=== PATIENT | male | born 1970 | race Hispanic/Latino ===

== ENCOUNTER 2017-10-11 20:43 | Emergency (ER) | payer MEDICARE ==
[2017-10-11 21:22] VITALS: BP 122/48
--- NOTE | 2017-10-11 21:37 | Emergency Department Report ---
HPI - General Chief Complaint: Upper Respiratory Infection Time Seen by Provider: 10/11/17 21:36 - HPI HPI: Patient here reported that he he has had cough for 2-3 weeks. Patient said that he has bad allergies and that he's been coughing which is worse at night report congestion and drainage with drainage of the back of his throat. He said he tried Zyrtec for a few days [id number] but it didn't help. He is also reporting sneezing. Denies any shortness of breath or chest pain. Denies any back pain. Denies any fever or chills. He reports generalized back pain with cough and a 10 out of 10. Triage nurse reported the patient was having pain in his chest but patient denies he said he is having it to his upper back when he coughs only. Pain is sore with coughing. No medication taken for cough or for pain. Denies any nausea or vomiting. Denies any urinary burning frequency or urgency. Denies any abdominal pain. Denies any headache or dizziness. ED Past Medical Hx - Past Medical History Previous Medical History?: Yes Hx Seizures: Yes - Surgical History Past Surgical History?: No - Family History Family history: no significant - Social History Smoking Status: Current Every Day Smoker Substance Use Type: None - Medications Home Medications: Home Medications Medication Instructions Recorded Confirmed Last Taken Type Azithromycin [Zithromax Z-PASTOR] 250 mg PO DAILY 5 Days #1 pack 10/11/17 Unknown Rx Cetirizine HCl [ZyrTEC] 10 mg PO QAM 14 Days #14 capsule 10/11/17 Unknown Rx Codeine Phosphate/Guaifenesin 10 ml PO QHS PRN #70 ml 10/11/17 Unknown Rx [Guaifenesin-Codeine Syrup] Fluticasone [Flonase] 1 spray NS QDAY 14 Days #1 bottle 10/11/17 Unknown Rx ED Review of Systems ROS: Stated complaint: COUGH Other details as noted in HPI Comment: All other systems reviewed and negative Constitutional: no symptoms reported Eyes: denies: eye pain, eye discharge, vision change ENT: congestion. denies: ear pain, throat pain, dental pain, hearing loss, epistaxis Respiratory: cough. denies: orthopnea, shortness of breath, SOB with exertion, SOB at rest, stridor, wheezing Cardiovascular: denies: chest pain, palpitations, dyspnea on exertion, edema, syncope, paroxysmal nocturnal dyspnea Gastrointestinal: denies: abdominal pain, nausea, vomiting, diarrhea, constipation, hematemesis, melena, hematochezia Genitourinary: denies: dysuria, hematuria Musculoskeletal: back pain (only with coughing) Skin: denies: rash Neurological: denies: headache, weakness, numbness, paresthesias, confusion, abnormal gait, vertigo Physical Exam - Physical Exam Vital Signs: Vital Signs 10/11/17 10/11/17 20:48 21:19 Temperature 98.3 F 98.3 F Pulse Rate 97 H 86 Respiratory 18 17 Rate Blood Pressure 122/48 122/48 O2 Sat by Pulse 97 98 Oximetry General: This is a 46-year-old male well-nourished well-developed in no acute distress. Physical Exam: Head: Normocephalic atraumatic Ears:BIateral TM congested without erythema and loss of bony landmarks. Sebastien EAC with normal exam. No mastoid bone tenderness. Mouth: Moist, no pharyngeal erythema or exudate . Positive tonsillar enlargement without tonsillar erythema or exudate. UVULA midline and oral airways patent. No peritonsillar abscess Neck: Nontender to palpate, supple, normal range of motion. No adenopathy. No c- spine tenderness. Nose: Bilateral nasal mucosa congested/erythema with clear drainage. Maxillary and frontal sinuses tender to palpate. Eyes: Bilateral Sclerae and conjunctiva without injection. Bilateral pupils equal and reactive to light. Bilateral lids are normal. Normal accommodation.BEOMI Lungs: Clear to auscultate bilaterally, no rhonchi wheezes or rales. Normal work of breathing and no chest wall tenderness. Dry cough. CV: S1, S2. Regular rate and rhythm negative murmur. Capillary refill is less than 3 seconds Abdomen: Nontender to palpation in all quadrants: No guarding or rebound tenderness. Positive bowel sounds in all quadrants Extremity: No clubbing, cyanosis or edema. +2 pulses in all extremities and no neurovascular compromise Skin: Clean dry and intact, no rashes or lesions Psych: Normal mood and behavior ED Course Vital Signs 10/11/17 10/11/17 20:48 21:19 Temperature 98.3 F 98.3 F Pulse Rate 97 H 86 Respiratory 18 17 Rate Blood Pressure 122/48 122/48 O2 Sat by Pulse 97 98 Oximetry - Reevaluation(s) Reevaluation #1: 10/11/17 22:51 He is stable throughout ED course. ED Medical Decision Making - Radiology Data Radiology results: report reviewed X-ray revealed no acute cardiopulmonary findings. - Medical Decision Making [place]: Here with upper respiratory cough and congestion 2-3 weeks which is preceded by nasal congestion and runny nose and postnasal drainage. Patient is without any chest pain or shortness of breath and his pulse ox is 98% on room air. He is not having any fever but reports severe pollen allergy which she has been taking Zyrtec without any relief but he did not take Zyrtec for prolonged period of time. Patient given Deltasone 60 mg by mouth in emergency room. I discussed patient of this chest x-ray stable and he has upper respiratory infection with cough and congestion for 3 weeks which need to be treated with antibiotic. He voiced understanding. Patient does have a primary care physician and I discussed with him he needs to follow-up with his primary care physician in 2-3 days. Patient discharged home in stable condition with prescription for Zyrtec, Flonase, Zpack and penicillin codeine. Critical care attestation.: If time is entered above; I have spent that time in minutes in the direct care of this critically ill patient, excluding procedure time. ED Disposition Clinical Impression: Upper respiratory infection with cough and congestion Disposition: DC-01 TO HOME OR SELFCARE Is pt being admited?: No Does the pt Need Aspirin: No Condition: Stable Instructions: Upper Respiratory Infection (ED), Acute Cough (ED) Additional Instructions: Please increase her fluid intake Flush nostrils with saline nasal spray take antibiotic as prescribed Zyrtec and Flonase 14 days and this will help or relief of nasal congestion. Take guaifenesin with codeine as needed at night but please do not drive or operate heavy machinery while taking this medication as it causes drowsiness F/U with primary care physician as instructed and if he do not have a primary care physician follow-up with outside Medical Center. Prescriptions: Codeine Phosphate/Guaifenesin [Guaifenesin-Codeine Syrup] 10 ml PO QHS PRN #70 ml PRN Reason: cough Azithromycin [Zithromax Z-PASTOR] 250 mg PO DAILY 5 Days #1 pack Cetirizine HCl [ZyrTEC] 10 mg PO QAM 14 Days #14 capsule Fluticasone [Flonase] 1 spray NS QDAY 14 Days #1 bottle Referrals: your, primary care physician [Other] - 2-3 Days [facility] [Outside] - 2-3 Days Forms: Work/School Release Form(ED), Accompanied Note
--- NOTE | 2017-10-11 21:47 | XRay Report ---
FINAL REPORT EXAM: XR CHEST ROUTINE 2V HISTORY: cough TECHNIQUE: Two view chest PA and lateral PRIORS: None. FINDINGS: Cardiac and mediastinal contours are unremarkable. No focal pulmonary infiltrate is identified. No pleural fluid collection seen. Pulmonary vasculature is unremarkable. IMPRESSION: Negative two-view chest
[2017-10-11] MEDS ORDERED: DELTASONE PO ONE (22:52)
== END 2017-10-11 23:11 | disposition home or self-care (01) ==
LOC: ED 20:43
DX: J06.9 Acute upper respiratory infection, unspecified (principal); F17.200 Nicotine dependence, unspecified, uncomplicated
CPT/HCPCS: 71046; 99283; J7512

== ENCOUNTER 2017-11-03 19:23 | Emergency (ER) | payer MEDICARE ==
[2017-11-03 19:44] VITALS: BP 109/71
== END 2017-11-03 19:43 | disposition left against medical advice (07) ==
LOC: ED 19:23
DX: M54.9 Dorsalgia, unspecified (principal); R05 Cough; Z88.6 Allergy status to analgesic agent; Z88.0 Allergy status to penicillin; F17.200 Nicotine dependence, unspecified, uncomplicated; Z53.21 Procedure and treatment not carried out due to patient leaving prior to being seen by health care provider

== ENCOUNTER 2017-11-05 22:19 | Emergency (ER) | payer MEDICARE ==
[2017-11-06 00:47] LABS: Basophils # (Auto) 0.1 K/mm3 (0.0-0.1); Basophils % (Auto) 1.1 % (0.0-1.8); Eosinophils # (Auto) 0.3 K/mm3 (0.0-0.4); Eosinophils % (Auto) 3.6 % (0.0-4.3); Hematocrit 36.7 % (35.5-45.6); Hemoglobin 12.5 gm/dl (11.8-15.2); Lymphocytes # (Auto) 3.5 K/mm3 (1.2-5.4); Mean Corpuscular HGB Conc 34 % (32-34); Mean Corpuscular Hemoglobin 33 pg (28-32); Mean Corpuscular Volume 97 fl (84-94); Monocytes # (Auto) 0.7 K/mm3 (0.0-0.8); Monocytes % (Auto) 9.7 % (0.0-7.3); Platelet Count 209 K/mm3 (140-440); Red Blood Count 3.77 M/mm3 (3.65-5.03)
[2017-11-06 01:12] LABS: Alanine Aminotransferase 7 units/L (7-56); Albumin 3.9 g/dL (3.9-5); BUN/Creatinine Ratio 20; Blood Urea Nitrogen 10 mg/dL (9-20); Calcium 9.1 mg/dL (8.4-10.2); Hemolysis Index 2
--- NOTE | 2017-11-06 01:18 | Emergency Department Report ---
HPI - General Chief Complaint: Abdominal Pain Time Seen by Provider: 11/06/17 01:00 - HPI HPI: 46-year-old male presents to the emergency department from home with complaint of a 3 week history of some right-sided chest and/or rib pain that occurs only when he is coughing. He feels that it may be due to environmental allergies and "pollen". He has tried some [id number] cough medication and Zyrtec for his symptoms with some temporary relief. He denies any chest discomfort when he has not coughing. He denies any shortness of breath, fever, back pain, abdominal pain, nausea, vomiting. He has a past medical history of epilepsy for which she takes seizure medications compliantly. No recent travel or sick contacts at home. He is a tobacco smoker but denies any illicit drug use or abuse. ED Past Medical Hx - Past Medical History Hx Seizures: Yes - Social History Smoking Status: Current Every Day Smoker Substance Use Type: None - Medications Home Medications: Home Medications Medication Instructions Recorded Confirmed Last Taken Type Azithromycin [Zithromax Z-PASTOR] 250 mg PO DAILY 5 Days #1 pack 10/11/17 Unknown Rx Cetirizine HCl [ZyrTEC] 10 mg PO QAM 14 Days #14 capsule 10/11/17 Unknown Rx Codeine Phosphate/Guaifenesin 10 ml PO QHS PRN #70 ml 10/11/17 Unknown Rx [Guaifenesin-Codeine Syrup] Fluticasone [Flonase] 1 spray NS QDAY 14 Days #1 bottle 10/11/17 Unknown Rx Benzonatate [Tessalon Perles] 100 mg PO Q8HR PRN #20 capsule 11/06/17 Unknown Rx ED Review of Systems ROS: Stated complaint: FLANK PAIN Other details as noted in HPI Comment: All other systems reviewed and negative Constitutional: denies: chills, fever Eyes: denies: eye pain, eye discharge, vision change ENT: denies: ear pain, throat pain Respiratory: cough. denies: wheezing Cardiovascular: denies: palpitations, edema Gastrointestinal: denies: abdominal pain, nausea, diarrhea Genitourinary: denies: urgency, dysuria Musculoskeletal: denies: back pain, joint swelling, arthralgia Skin: denies: rash, lesions Neurological: denies: headache, weakness, paresthesias Physical Exam - Physical Exam Vital Signs: Vital Signs 11/05/17 23:44 Temperature 97.5 F L Pulse Rate 89 Blood Pressure 114/67 O2 Sat by Pulse 98 Oximetry ED Course Vital Signs 11/05/17 23:44 Temperature 97.5 F L Pulse Rate 89 Blood Pressure 114/67 O2 Sat by Pulse 98 Oximetry ED Medical Decision Making - Lab Data Result diagrams: 11/06/17 00:02 11/06/17 00:02 Critical care attestation.: If time is entered above; I have spent that time in minutes in the direct care of this critically ill patient, excluding procedure time. ED Disposition Clinical Impression: Cough, Rib pain on right side, Tobacco use disorder Disposition: TO HOME OR SELFCARE Is pt being admited?: No Condition: Stable Instructions: Chronic Cough (ED), How to Stop Smoking (ED) Additional Instructions: Please follow up with a primary care physician in the next few days. Return to the emergency Department with any worsening of your symptoms or any acute distress. Please try and quit smoking. Prescriptions: Benzonatate [Tessalon Perles] 100 mg PO Q8HR PRN #20 capsule PRN Reason: Cough Referrals: PRIMARY CAREMD [Primary Care Provider] - 3-5 Days HARESH ALARCON MD [Staff Physician] - 3-5 Days [facility] [Outside] - 3-5 Days Time of Disposition: 01:56
[2017-11-06 02:07] VITALS: BP 112/62
== END 2017-11-06 02:10 | disposition home or self-care (01) ==
LOC: ED 22:19
DX: R07.81 Pleurodynia (principal); R05 Cough; F17.200 Nicotine dependence, unspecified, uncomplicated
CPT/HCPCS: 36415; 80053; 85025; 99283

== ENCOUNTER 2017-11-20 15:26 | Emergency (ER) | payer MEDICARE ==
[2017-11-20 16:20] VITALS: BP 98/58
--- NOTE | 2017-11-20 18:12 | Emergency Department Report ---
ED General Adult HPI - General Chief complaint: Medical Clearance Stated complaint: REFILL ON SEZUIRE MEDICATION Time Seen by Provider: 11/20/17 18:03 Source: patient Mode of arrival: Ambulatory Limitations: No Limitations - History of Present Illness Initial comments: Ms. Pizano has history of seizure disorder. He requests refills prescription of Depakote 500 mg twice a day. He denies any medical complaints or concerns. - Related Data Previous Rx's Medication Instructions Recorded Last Taken Type Azithromycin [Zithromax Z-PASTOR] 250 mg PO DAILY 5 Days #1 pack 10/11/17 Unknown Rx Cetirizine HCl [ZyrTEC] 10 mg PO QAM 14 Days #14 capsule 10/11/17 Unknown Rx Codeine Phosphate/Guaifenesin 10 ml PO QHS PRN #70 ml 10/11/17 Unknown Rx [Guaifenesin-Codeine Syrup] Fluticasone [Flonase] 1 spray NS QDAY 14 Days #1 bottle 10/11/17 Unknown Rx Benzonatate [Tessalon Perles] 100 mg PO Q8HR PRN #20 capsule 11/06/17 Unknown Rx Divalproex Sodium [Depakote] 500 mg PO BID 30 Days #60 tablet. 11/20/17 Unknown Rx Allergies Allergy/AdvReac Type Severity Reaction Status Date / Time aspirin Allergy Itching Verified 11/05/17 23:46 Penicillins Allergy Itching Verified 11/05/17 23:46 ED Review of Systems ROS: Stated complaint: REFILL ON SEZUIRE MEDICATION Other details as noted in HPI ED Past Medical Hx - Past Medical History Hx Seizures: Yes - Social History Smoking Status: Current Every Day Smoker - Medications Home Medications: Home Medications Medication Instructions Recorded Confirmed Last Taken Type Azithromycin [Zithromax Z-PASTOR] 250 mg PO DAILY 5 Days #1 pack 10/11/17 Unknown Rx Cetirizine HCl [ZyrTEC] 10 mg PO QAM 14 Days #14 capsule 10/11/17 Unknown Rx Codeine Phosphate/Guaifenesin 10 ml PO QHS PRN #70 ml 10/11/17 Unknown Rx [Guaifenesin-Codeine Syrup] Fluticasone [Flonase] 1 spray NS QDAY 14 Days #1 bottle 10/11/17 Unknown Rx Benzonatate [Tessalon Perles] 100 mg PO Q8HR PRN #20 capsule 11/06/17 Unknown Rx Divalproex Sodium [Depakote] 500 mg PO BID 30 Days #60 tablet. 11/20/17 Unknown Rx ED Physical Exam - General Limitations: No Limitations General appearance: alert, in no apparent distress - Head Head exam: Present: atraumatic, normocephalic - Eye Eye exam: Present: normal appearance - ENT ENT exam: Present: mucous membranes moist - Extremities Exam Extremities exam: Present: normal inspection - Neurological Exam Neurological exam: Present: normal gait - Psychiatric Psychiatric exam: Present: normal affect, normal mood - Skin Skin exam: Present: warm, dry, intact, normal color ED Course Vital Signs 11/20/17 16:18 Temperature 97.7 F Pulse Rate 77 Respiratory 16 Rate Blood Pressure 98/58 O2 Sat by Pulse 96 Oximetry ED Medical Decision Making - Medical Decision Making Mr. Pizano presents for medication refill request. I have provided prescription for Depakote as he has requested Critical care attestation.: If time is entered above; I have spent that time in minutes in the direct care of this critically ill patient, excluding procedure time. ED Disposition Clinical Impression: Medication refill Disposition: DC-01 TO HOME OR SELFCARE Is pt being admited?: No Does the pt Need Aspirin: No Condition: Stable Prescriptions: Divalproex Sodium [Depakote] 500 mg PO BID 30 Days #60 tablet. Referrals: [facility] [Outside] - 3-5 Days Time of Disposition: 18:12
== END 2017-11-20 18:24 | disposition home or self-care (01) ==
LOC: ED 15:26
DX: G40.909 Epilepsy, unspecified, not intractable, without status epilepticus (principal); Z76.0 Encounter for issue of repeat prescription; F17.200 Nicotine dependence, unspecified, uncomplicated; Z88.0 Allergy status to penicillin; Z88.8 Allergy status to other drugs, medicaments and biological substances
CPT/HCPCS: 99281

== ENCOUNTER 2018-09-08 22:12 | Emergency (ER) | payer MEDICARE ==
[2018-09-08 22:41] VITALS: BP 126/63
== END 2018-09-08 22:58 | disposition left against medical advice (07) ==
LOC: ED 22:12
DX: R05 Cough (principal); Z53.21 Procedure and treatment not carried out due to patient leaving prior to being seen by health care provider

== ENCOUNTER 2021-09-25 08:14 | Emergency (ER) | payer MEDICARE ==
[2021-09-25 08:32] VITALS: BP 126/49
== END 2021-09-25 09:40 | disposition left against medical advice (07) ==
LOC: ED 08:14
DX: R05.9 Cough, unspecified (principal); Z53.21 Procedure and treatment not carried out due to patient leaving prior to being seen by health care provider

== ENCOUNTER 2022-01-21 18:27 | Emergency (ER) | payer MEDICARE ==
--- NOTE | 2022-01-22 01:28 | Emergency Department Report ---
ED Medical Clearance [facility] - General Chief complaint: Psych Stated complaint: MEDICAL CLEARENCE Time Seen by Provider: 01/22/22 01:09 Source: patient Mode of arrival: Ambulatory - History of Present Illness Initial comments: Patient 51-year-old male with history of depression who presents for medical clearance for [facility] inpatient. Patient denies SI or HI. Patient denies substance today. No nausea no vomiting no fever chills. Patient denies other complaint. Current medication regimen includes Kenzie CAICEDO Complaint: medical clearance request Home medications: Previous Rx's Medication Instructions Recorded Last Taken Type Azithromycin [Zithromax Z-PASTOR] 250 mg PO DAILY 5 Days #1 pack 10/11/17 Unknown Rx Cetirizine HCl [ZyrTEC] 10 mg PO QAM 14 Days #14 capsule 10/11/17 Unknown Rx Codeine Phosphate/Guaifenesin 10 ml PO QHS PRN #70 ml 10/11/17 Unknown Rx [Guaifenesin-Codeine Syrup] Fluticasone [Flonase] 1 spray NS QDAY 14 Days #1 bottle 10/11/17 Unknown Rx Benzonatate [Tessalon Perles] 100 mg PO Q8HR PRN #20 capsule 11/06/17 Unknown Rx Divalproex Sodium [Depakote] 500 mg PO BID 30 Days #60 tablet. 11/20/17 Unknown Rx Allergies/Adverse reactions: Allergies Allergy/AdvReac Type Severity Reaction Status Date / Time aspirin Allergy Itching Verified 11/05/17 23:46 Penicillins Allergy Itching Verified 11/05/17 23:46 ED Review of Systems ROS: Stated complaint: MEDICAL CLEARENCE Other details as noted in HPI Constitutional: denies: chills, fever Eyes: denies: eye pain, eye discharge, vision change ENT: denies: ear pain, throat pain Respiratory: denies: cough, shortness of breath, wheezing Cardiovascular: denies: chest pain, palpitations Endocrine: no symptoms reported Gastrointestinal: denies: abdominal pain, nausea, vomiting, diarrhea Genitourinary: denies: urgency, dysuria Musculoskeletal: denies: back pain, joint swelling, arthralgia Skin: denies: rash, lesions Neurological: denies: headache, weakness, paresthesias, vertigo Psychiatric: depression. denies: auditory hallucinations, visual hallucinations, homicidal thoughts, suicidal thoughts Hematological/Lymphatic: denies: easy bleeding, easy bruising ED Past Medical Hx - Past Medical History Hx Seizures: Yes - Social History Smoking Status: Never Smoker Substance Use Type: None - Medications Home Medications: Home Medications Medication Instructions Recorded Confirmed Last Taken Type Azithromycin [Zithromax Z-PASTOR] 250 mg PO DAILY 5 Days #1 pack 10/11/17 Unknown Rx Cetirizine HCl [ZyrTEC] 10 mg PO QAM 14 Days #14 capsule 10/11/17 Unknown Rx Codeine Phosphate/Guaifenesin 10 ml PO QHS PRN #70 ml 10/11/17 Unknown Rx [Guaifenesin-Codeine Syrup] Fluticasone [Flonase] 1 spray NS QDAY 14 Days #1 bottle 10/11/17 Unknown Rx Benzonatate [Tessalon Perles] 100 mg PO Q8HR PRN #20 capsule 11/06/17 Unknown Rx Divalproex Sodium [Depakote] 500 mg PO BID 30 Days #60 tablet. 11/20/17 Unknown Rx ED Physical Exam - General Limitations: No Limitations General appearance: alert, in no apparent distress - Head Head exam: Present: normocephalic, normal inspection - Eye Eye exam: Present: normal appearance, PERRL, EOMI. Absent: conjunctival injection, nystagmus Pupils: Present: normal accommodation - ENT ENT exam: Present: normal orophraynx, mucous membranes moist - Neck Neck exam: Present: normal inspection, full ROM. Absent: tenderness, lymphadenopathy - Respiratory Respiratory exam: Present: normal lung sounds bilaterally. Absent: respiratory distress, wheezes, stridor - Cardiovascular Cardiovascular Exam: Present: regular rate, normal rhythm, normal heart sounds. Absent: systolic murmur, diastolic murmur, rubs, gallop - GI/Abdominal GI/Abdominal exam: Present: soft. Absent: distended, tenderness, bruit, hernia - Rectal Rectal exam: Present: deferred - Extremities Exam Extremities exam: Present: normal inspection, full ROM, normal capillary refill. Absent: pedal edema - Back Exam Back exam: Present: normal inspection, full ROM. Absent: CVA tenderness (R), CVA tenderness (L) - Neurological Exam Neurological exam: Present: alert, oriented X3, CN II-XII intact, normal gait, reflexes normal. Absent: motor sensory deficit - Expanded Neurological Exam Expanded Patient oriented to: Present: person, place, time Speech: Present: fluid speech Motor strength exam: RUE: 5, LUE: 5, RLE: 5, LLE: 5 Best Eye Response ([place]): (4) open spontaneously Best Motor Response ([place]): (6) obeys commands Best Verbal Response ([place]): (5) oriented Axel Total: 15 - Psychiatric Psychiatric exam: Present: normal affect, normal mood. Absent: agitated, anxious, manic, homicidal ideation, suicidal ideation - Skin Skin exam: Present: warm, dry, intact, normal color. Absent: rash ED Course Vital Signs 01/21/22 20:03 Temperature 98.4 F Pulse Rate 80 Respiratory 18 Rate Blood Pressure 128/55 [Right] O2 Sat by Pulse 98 Oximetry ED Medical Decision Making - Lab Data Result diagrams: 01/22/22 01:34 01/22/22 01:34 Labs 01/22/22 01/22/22 01/22/22 01:34 01:34 01:34 WBC 6.6 RBC 3.58 L Hgb 12.2 Hct 36.0 MCV 101 H MCH 34 H MCHC 34 RDW 14.4 Plt Count 155 Lymph % (Auto) 45.1 H Emmons % (Auto) 11.4 H Eos % (Auto) 4.8 H Baso % (Auto) 0.7 Lymph # (Auto) 3.0 Emmons # (Auto) 0.7 Eos # (Auto) 0.3 Baso # (Auto) 0.0 Seg Neutrophils % 38.0 L Seg Neutrophils # 2.5 Sodium 138 Potassium 3.7 Chloride 100.7 Carbon Dioxide 29 Anion Gap 12 BUN 10 Creatinine 0.8 Estimated GFR > 60 BUN/Creatinine Ratio 13 Glucose 67 L Calcium 9.1 Total Bilirubin 0.30 AST 26 ALT 9 Alkaline Phosphatase 64 Total Protein 6.3 Albumin 4.0 Albumin/Globulin Ratio 1.7 Acetaminophen Valproic Acid 92.8 01/22/22 01:34 WBC RBC Hgb Hct MCV MCH MCHC RDW Plt Count Lymph % (Auto) Emmons % (Auto) Eos % (Auto) Baso % (Auto) Lymph # (Auto) Emmons # (Auto) Eos # (Auto) Baso # (Auto) Seg Neutrophils % Seg Neutrophils # Sodium Potassium Chloride Carbon Dioxide Anion Gap BUN Creatinine Estimated GFR BUN/Creatinine Ratio Glucose Calcium Total Bilirubin AST ALT Alkaline Phosphatase Total Protein Albumin Albumin/Globulin Ratio Acetaminophen 5.0 L Valproic Acid Labs 01/22/22 01/22/22 01/22/22 01:34 01:34 01:34 WBC 6.6 RBC 3.58 L Hgb 12.2 Hct 36.0 MCV 101 H MCH 34 H MCHC 34 RDW 14.4 Plt Count 155 Lymph % (Auto) 45.1 H Emmons % (Auto) 11.4 H Eos % (Auto) 4.8 H Baso % (Auto) 0.7 Lymph # (Auto) 3.0 Emmons # (Auto) 0.7 Eos # (Auto) 0.3 Baso # (Auto) 0.0 Seg Neutrophils % 38.0 L Seg Neutrophils # 2.5 Sodium 138 Potassium 3.7 Chloride 100.7 Carbon Dioxide 29 Anion Gap 12 BUN 10 Creatinine 0.8 Estimated GFR > 60 BUN/Creatinine Ratio 13 Glucose 67 L Calcium 9.1 Total Bilirubin 0.30 AST 26 ALT 9 Alkaline Phosphatase 64 Total Protein 6.3 Albumin 4.0 Albumin/Globulin Ratio 1.7 Salicylates < 0.3 L Acetaminophen Valproic Acid 92.8 01/22/22 01:34 WBC RBC Hgb Hct MCV MCH MCHC RDW Plt Count Lymph % (Auto) Emmons % (Auto) Eos % (Auto) Baso % (Auto) Lymph # (Auto) Emmons # (Auto) Eos # (Auto) Baso # (Auto) Seg Neutrophils % Seg Neutrophils # Sodium Potassium Chloride Carbon Dioxide Anion Gap BUN Creatinine Estimated GFR BUN/Creatinine Ratio Glucose Calcium Total Bilirubin AST ALT Alkaline Phosphatase Total Protein Albumin Albumin/Globulin Ratio Salicylates Acetaminophen 5.0 L Valproic Acid - Medical Decision Making Patient appears nontoxic well-hydrated well-nourished with appropriate mentation patient is not SI or HI at this time. Patient requesting medical clearance for admission to [facility] for diagnosis depression. Symptoms are managed with Depakote and Abilify per patient.. Labs noted as above patient is cleared for admission to [facility]. Patient DC'd in stable condition at this time. Has completed initial admission packet. Patient discharged to [facility] at this time. ED Disposition Clinical Impression: Medical clearance for psychiatric admission Disposition: HOME / SELF CARE / HOMELESS Is pt being admited?: No Does the pt Need Aspirin: No Condition: Stable Instructions: Living With Depression Additional Instructions: You are medically cleared for admission to [facility], follow-up with [facility] as scheduled. Referrals: [facility] [Provider Group] - 3-5 Days Forms: Work/School Release Form(ED) Time of Disposition: 02:44
[2022-01-22 02:14] LABS: Basophils % (Auto) 0.7 % (0.0-1.8); Eosinophils # (Auto) 0.3 K/mm3 (0.0-0.4); Eosinophils % (Auto) 4.8 % (0.0-4.3); Hemoglobin 12.2 gm/dl (11.8-15.2); Lymphocytes % (Auto) 45.1 % (13.4-35.0); Mean Corpuscular HGB Conc 34 % (32-34); Mean Corpuscular Volume 101 fl (84-94); Monocytes # (Auto) 0.7 K/mm3 (0.0-0.8); Monocytes % (Auto) 11.4 % (0.0-7.3); Platelet Count 155 K/mm3 (140-440); Red Blood Count 3.58 M/mm3 (3.65-5.03); Red Cell Distribution Width 14.4 % (13.2-15.2)
[2022-01-22 02:23] LABS: Alanine Aminotransferase 9 units/L (7-56); BUN/Creatinine Ratio 13; Blood Urea Nitrogen 10 mg/dL (9-20); Calcium 9.1 mg/dL (8.4-10.2); Hemolysis Index 4
[2022-01-22 02:42] LABS: Color,Urine Colorless (Yellow)
[2022-01-22 02:43] LABS: RBC,Urine < 1.0 /HPF (0.0-6.0); WBC,Urine < 1.0 /HPF (0.0-6.0)
[2022-01-22 02:45] LABS: Amphetamine Screen,Urine Negative; Benzodiazepines Screen,Urine Negative; Cannabinoid Screen,Urine Negative; Cocaine Screen,Urine Negative; Methadone Screen,Urine Negative; Opiate Screen,Urine Negative
[2022-01-22 03:02] VITALS: BP 123/66
== END 2022-01-22 02:54 | disposition home or self-care (01) ==
LOC: ED 18:27
DX: Z13.30 Encounter for screening examination for mental health and behavioral disorders, unspecified (principal); Z88.0 Allergy status to penicillin; Z88.6 Allergy status to analgesic agent; Z79.899 Other long term (current) drug therapy
CPT/HCPCS: 36415; 80053; 80164; 80307; 80320; 81001; 85025; 99283; G0480

== ENCOUNTER 2022-01-27 14:30 | Emergency (ER) | payer MEDICARE ==
[2022-01-27 15:20] VITALS: BP 128/70
[2022-01-27 16:06] LABS: Basophils # (Auto) 0.1 K/mm3 (0.0-0.1); Eosinophils # (Auto) 0.1 K/mm3 (0.0-0.4); Eosinophils % (Auto) 0.9 % (0.0-4.3); Hematocrit 41.5 % (35.5-45.6); Hemoglobin 13.8 gm/dl (11.8-15.2); Lymphocytes # (Auto) 1.9 K/mm3 (1.2-5.4); Lymphocytes % (Auto) 25.5 % (13.4-35.0); Mean Corpuscular HGB Conc 33 % (32-34); Mean Corpuscular Volume 102 fl (84-94); Monocytes # (Auto) 0.8 K/mm3 (0.0-0.8); Monocytes % (Auto) 10.9 % (0.0-7.3); Platelet Count 153 K/mm3 (140-440); Red Blood Count 4.06 M/mm3 (3.65-5.03); Red Cell Distribution Width 14.1 % (13.2-15.2)
[2022-01-27 16:20] LABS: Alanine Aminotransferase 12 units/L (7-56); Albumin 4.6 g/dL (3.9-5); BUN/Creatinine Ratio 26; Blood Urea Nitrogen 21 mg/dL (9-20); Calcium 9.7 mg/dL (8.4-10.2); Hemolysis Index 114
--- NOTE | 2022-01-27 17:10 | Emergency Department Report ---
ED General Adult HPI - General Chief complaint: Psych Stated complaint: DEPRESSION Time Seen by Provider: 01/27/22 14:58 Source: patient, EMS Mode of arrival: Ambulatory Limitations: No Limitations - History of Present Illness Initial comments: The patient presents to the emergency department via EMS for depression. Patient states he has been depressed for quite some time. He denies homicidal or suicidal ideation. Patient denies family history of bipolar schizophrenia and also denies auditory or visual hallucinations. -: unknown Severity scale (0 -10): 0 Consistency: constant Improves with: none Worsens with: none Associated Symptoms: denies other symptoms Treatments Prior to Arrival: none - Related Data Previous Rx's Medication Instructions Recorded Last Taken Type Azithromycin [Zithromax Z-PASTOR] 250 mg PO DAILY 5 Days #1 pack 10/11/17 Unknown Rx Cetirizine HCl [ZyrTEC] 10 mg PO QAM 14 Days #14 capsule 10/11/17 Unknown Rx Codeine Phosphate/Guaifenesin 10 ml PO QHS PRN #70 ml 10/11/17 Unknown Rx [Guaifenesin-Codeine Syrup] Fluticasone [Flonase] 1 spray NS QDAY 14 Days #1 bottle 10/11/17 Unknown Rx Benzonatate [Tessalon Perles] 100 mg PO Q8HR PRN #20 capsule 11/06/17 Unknown Rx Divalproex Sodium [Depakote] 500 mg PO BID 30 Days #60 tablet. 11/20/17 Unknown Rx Allergies Allergy/AdvReac Type Severity Reaction Status Date / Time aspirin Allergy Itching Verified 01/27/22 15:21 Penicillins Allergy Itching Verified 01/27/22 15:21 ED Review of Systems ROS: Stated complaint: DEPRESSION Other details as noted in HPI Comment: All other systems reviewed and negative Constitutional: denies: chills, fever Eyes: denies: eye pain, eye discharge, vision change ENT: denies: ear pain, throat pain Respiratory: denies: cough, shortness of breath, wheezing Cardiovascular: denies: chest pain, palpitations Endocrine: no symptoms reported Gastrointestinal: denies: abdominal pain, nausea, diarrhea Genitourinary: denies: urgency, dysuria Musculoskeletal: denies: back pain, joint swelling, arthralgia Skin: denies: rash, lesions Neurological: denies: headache, weakness, paresthesias Psychiatric: denies: anxiety, depression Hematological/Lymphatic: denies: easy bleeding, easy bruising ED Past Medical Hx - Past Medical History Previous Medical History?: Yes Hx Seizures: Yes Hx Psychiatric Treatment: Yes - Social History Smoking Status: Never Smoker Substance Use Type: None - Medications Home Medications: Home Medications Medication Instructions Recorded Confirmed Last Taken Type Azithromycin [Zithromax Z-PASTOR] 250 mg PO DAILY 5 Days #1 pack 10/11/17 Unknown Rx Cetirizine HCl [ZyrTEC] 10 mg PO QAM 14 Days #14 capsule 10/11/17 Unknown Rx Codeine Phosphate/Guaifenesin 10 ml PO QHS PRN #70 ml 10/11/17 Unknown Rx [Guaifenesin-Codeine Syrup] Fluticasone [Flonase] 1 spray NS QDAY 14 Days #1 bottle 10/11/17 Unknown Rx Benzonatate [Tessalon Perles] 100 mg PO Q8HR PRN #20 capsule 11/06/17 Unknown Rx Divalproex Sodium [Depakote] 500 mg PO BID 30 Days #60 tablet. 11/20/17 Unknown Rx ED Physical Exam - General Limitations: No Limitations General appearance: alert, in no apparent distress - Head Head exam: Present: atraumatic, normocephalic - Eye Eye exam: Present: normal appearance, PERRL, EOMI - ENT ENT exam: Present: mucous membranes moist - Neck Neck exam: Present: normal inspection - Respiratory Respiratory exam: Present: normal lung sounds bilaterally. Absent: respiratory distress - Cardiovascular Cardiovascular Exam: Present: regular rate, normal rhythm. Absent: systolic murmur, diastolic murmur, rubs, gallop - GI/Abdominal GI/Abdominal exam: Present: soft, normal bowel sounds. Absent: distended, tenderness - Rectal Rectal exam: Present: deferred - Extremities Exam Extremities exam: Present: normal inspection - Back Exam Back exam: Present: normal inspection - Neurological Exam Neurological exam: Present: alert, oriented X3, CN II-XII intact. Absent: motor sensory deficit - Psychiatric Psychiatric exam: Present: normal affect, normal mood - Skin Skin exam: Present: warm, dry, intact, normal color. Absent: rash ED Course Vital Signs 01/27/22 15:16 Temperature 98.4 F Pulse Rate 86 Respiratory 16 Rate Blood Pressure 128/70 [Left] O2 Sat by Pulse 99 Oximetry ED Medical Decision Making - Lab Data Result diagrams: 01/27/22 15:39 01/27/22 15:39 - Medical Decision Making Patient evaluated by mental health and is not deemed to be a threat to himself or others patient was given outpatient resources via mental health for follow-up Critical care attestation.: If time is entered above; I have spent that time in minutes in the direct care of this critically ill patient, excluding procedure time. ED Disposition Clinical Impression: Depression Disposition: HOME / SELF CARE / HOMELESS Is pt being admited?: No Does the pt Need Aspirin: No Condition: Stable Additional Instructions: Professional and Agency Contacts To help [facility](29/12) [place] Crisis Line: Suicide Prevention Line: Crisis Text Line: Text START to 019972 Emergency: 911 Outpatient COMMUNITY Behavioral Health Resources: [facility]: [facility] [address], [place] [address] [facility] [address] [place] [address] [facility] - [address] [place] [address] Thursday thru Thursday - 8am - 5pm [facility] Address: [address] [place] [address] [facility] Address: [address] [place] [address] Thursday thru Thursday- 7am-2pm [facility] Address: [address] [place] [address] Thursday thru Thursday: 8:30AM-5PM Referrals: ANGEL CARDONA MD [Primary Care Provider] - [facility] Time of Disposition: 17:09
== END 2022-01-27 17:15 | disposition home or self-care (01) ==
LOC: ED 14:30
DX: F32.A Depression, unspecified (principal); Z88.0 Allergy status to penicillin; Z88.6 Allergy status to analgesic agent
CPT/HCPCS: 36415; 80053; 80320; 85025; 99283; G0480

== ENCOUNTER 2022-02-02 15:58 | Emergency (ER) | payer MEDICARE ==
[2022-02-02 16:03] VITALS: BP 135/85
--- NOTE | 2022-02-02 16:15 | Emergency Department Report ---
ED General Adult HPI - General Chief complaint: Psych Stated complaint: MENTAL EVALUATION PUI?: No Time Seen by Provider: 02/02/22 16:14 Source: patient, EMS Mode of arrival: Stretcher Limitations: No Limitations - History of Present Illness Initial comments: This is a 51-year-old male who was brought in by EMS for mental health evaluation. EMS states patient is 11 called the ambulance he wanted to go to [facility] directly however they have dropped him off here instead. Patient is that he does not want to be here and he wants to go to work he was walking himself. Patient denies suicidal homicidal ideation. Patient said that he only feels depressed. Patient denies hallucinations such as tactile , visual, or auditory. Patient denies any other symptoms. - Related Data Previous Rx's Medication Instructions Recorded Last Taken Type Azithromycin [Zithromax Z-PASTOR] 250 mg PO DAILY 5 Days #1 pack 10/11/17 Unknown Rx Cetirizine HCl [ZyrTEC] 10 mg PO QAM 14 Days #14 capsule 10/11/17 Unknown Rx Codeine Phosphate/Guaifenesin 10 ml PO QHS PRN #70 ml 10/11/17 Unknown Rx [Guaifenesin-Codeine Syrup] Fluticasone [Flonase] 1 spray NS QDAY 14 Days #1 bottle 10/11/17 Unknown Rx Benzonatate [Tessalon Perles] 100 mg PO Q8HR PRN #20 capsule 11/06/17 Unknown Rx Divalproex Sodium [Depakote] 500 mg PO BID 30 Days #60 tablet. 11/20/17 Unknown Rx Allergies Allergy/AdvReac Type Severity Reaction Status Date / Time aspirin Allergy Itching Verified 02/02/22 16:03 Penicillins Allergy Itching Verified 02/02/22 16:03 ED Review of Systems ROS: Stated complaint: MENTAL EVALUATION Other details as noted in HPI Comment: All other systems reviewed and negative Constitutional: no symptoms reported, see HPI Eyes: as per HPI ENT: as per HPI Respiratory: no symptoms reported, see HPI Cardiovascular: as per HPI Endocrine: no symptoms reported, see HPI Gastrointestinal: as per HPI Genitourinary: as per HPI Musculoskeletal: as per HPI Skin: as per HPI Neurological: as per HPI Psychiatric: as per HPI Hematological/Lymphatic: as per HPI ED Past Medical Hx - Past Medical History Previous Medical History?: Yes Hx Seizures: Yes Hx Psychiatric Treatment: Yes - Social History Smoking Status: Never Smoker Substance Use Type: None - Medications Home Medications: Home Medications Medication Instructions Recorded Confirmed Last Taken Type Azithromycin [Zithromax Z-PASTOR] 250 mg PO DAILY 5 Days #1 pack 10/11/17 Unknown Rx Cetirizine HCl [ZyrTEC] 10 mg PO QAM 14 Days #14 capsule 10/11/17 Unknown Rx Codeine Phosphate/Guaifenesin 10 ml PO QHS PRN #70 ml 10/11/17 Unknown Rx [Guaifenesin-Codeine Syrup] Fluticasone [Flonase] 1 spray NS QDAY 14 Days #1 bottle 10/11/17 Unknown Rx Benzonatate [Tessalon Perles] 100 mg PO Q8HR PRN #20 capsule 11/06/17 Unknown Rx Divalproex Sodium [Depakote] 500 mg PO BID 30 Days #60 tablet. 11/20/17 Unknown Rx ED Physical Exam - General Limitations: No Limitations General appearance: alert, in no apparent distress, other (Appears irritated and pissed off.) - Head Head exam: Present: atraumatic, normocephalic, normal inspection - Eye Eye exam: Present: normal appearance, PERRL, EOMI Pupils: Present: normal accommodation - ENT ENT exam: Present: normal exam, mucous membranes moist - Neck Neck exam: Present: normal inspection, full ROM - Respiratory Respiratory exam: Present: normal lung sounds bilaterally - Cardiovascular Cardiovascular Exam: Present: regular rate, normal rhythm, normal heart sounds - GI/Abdominal GI/Abdominal exam: Present: soft - Extremities Exam Extremities exam: Present: normal inspection, full ROM, normal capillary refill - Back Exam Back exam: Present: normal inspection, full ROM - Neurological Exam Neurological exam: Present: alert, oriented X3, CN II-XII intact - Psychiatric Psychiatric exam: Present: agitated. Absent: anxious, flat affect, manic, homicidal ideation, suicidal ideation - Skin Skin exam: Present: normal color ED Course Vital Signs 02/02/22 16:01 Temperature 98.6 F Pulse Rate 85 Respiratory 14 Rate Blood Pressure 135/85 [Left] O2 Sat by Pulse 99 Oximetry Critical care attestation.: If time is entered above; I have spent that time in minutes in the direct care of this critically ill patient, excluding procedure time. ED Disposition Clinical Impression: Complaint of feeling depressed Disposition: 01 HOME / SELF CARE / HOMELESS Is pt being admited?: No Does the pt Need Aspirin: No Condition: Stable Instructions: Dysphoria Additional Instructions: IF YOU FEEL LIKE HURTING YOURSELF OR ANYONE ELSE; PLEASE RETURN TO THE EMERGENCY ROOM IMMEDIATELY. Time of Disposition: 16:14
== END 2022-02-02 16:40 | disposition home or self-care (01) ==
LOC: ED 15:58
DX: F32.A Depression, unspecified (principal); R56.9 Unspecified convulsions; Z13.30 Encounter for screening examination for mental health and behavioral disorders, unspecified; Z88.0 Allergy status to penicillin; Z91.09 Other allergy status, other than to drugs and biological substances; Z79.899 Other long term (current) drug therapy
CPT/HCPCS: 99283

== ENCOUNTER 2022-02-15 18:13 | Emergency (ER) | payer MEDICARE | END 2022-02-15 18:25 | disposition left against medical advice (07) | LOC: ED 18:13 | DX: R07.81 Pleurodynia (principal); Z53.21 Procedure and treatment not carried out due to patient leaving prior to being seen by health care provider ==

== ENCOUNTER 2022-02-27 10:18 | Emergency (ER) | payer MEDICARE ==
[2022-02-27 10:33] VITALS: BP 132/72
== END 2022-02-28 06:55 | disposition left against medical advice (07) ==
LOC: ED 10:18
DX: R07.81 Pleurodynia (principal); Z53.21 Procedure and treatment not carried out due to patient leaving prior to being seen by health care provider

== ENCOUNTER 2022-02-27 22:31 | Emergency (ER) | payer MEDICARE ==
[2022-02-28 00:20] VITALS: BP 103/61
--- NOTE | 2022-02-28 01:28 | XRay Report ---
LEFT RIB SERIES, 2 VIEWS INDICATION / CLINICAL INFORMATION: fall. COMPARISON: None available. FINDINGS: There is a nondisplaced fracture of the left sixth anterolateral rib. No additional fractures identif ied. No pneumothorax identified. No significant pleural effusion. Both lungs are grossly well aerated and clear. IMPRESSION: Nondisplaced fracture of the left sixth anterolateral rib. Signer Name: Tawanna Knight MD Signed: 02/28/2022 1:23 AM Workstation Name: [id number]
== END 2022-02-28 17:46 | disposition left against medical advice (07) ==
LOC: ED 22:31
DX: R07.81 Pleurodynia (principal); Z53.21 Procedure and treatment not carried out due to patient leaving prior to being seen by health care provider

== ENCOUNTER 2022-02-28 07:36 | Emergency (ER) | payer MEDICARE | END 2022-02-28 12:54 | disposition left against medical advice (07) | LOC: ED 07:36 | DX: Z00.00 Encounter for general adult medical examination without abnormal findings (principal); Z53.21 Procedure and treatment not carried out due to patient leaving prior to being seen by health care provider ==